=== PATIENT | female | born 1960 | race Caucasian/White ===

== ENCOUNTER → 2017-04-08 | Outpatient (CLI) | payer BC ==
[~2017-04-08] MED LIST: ASPI325T6 PO; B-12 100 MCG; CARAFATE 1GM1 G PO; CELEBREX 200MG200 MG PO; COZAAR 50MG50 MG/TAB PO; EFFEXOR XR37.5 MG/CA PO; FERROUS SU325 MG/TAB PO; FIORICET 325 MG1 TA1 PO; FOLIC ACID 40400 MCG PO; LOVENOX 4040 MG/0.4 SQ; NIACIN500 M3 PO; NORVASC 5MG5 MG/TAB PO; OMEGA 31000 MG PO; PERCOCET 325 MG1 TA2 PO; PREMARIN VAG42.5 GM VG; PRINIVIL20 MG PO; PROMETRIUM100 MG PO; PROTONIX 40MG T40 MG PO; TESTIM1% TP; VITAMIN B COMPL1 TA1 PO; VITAMIN B12100 MCG; VITAMIN C500 MG PO; VITAMIN D31000 IU PO; WELLBUTRIN SR100 M1 PO; ZOFRAN 4MG T4 MG/TAB PO; ZYRTEC 10MG10 MG PO
== END ==
LOC: MC.RAD 08:20
DX: Z12.31 Encounter for screening mammogram for malignant neoplasm of breast (principal)

== ENCOUNTER 2019-11-12 10:06 | Observation (INO) | payer BC ==
[2019-11-12] VITALS (8 sets, daily range): BP systolic 116–125; BP diastolic 50–58; PULSE 68–89; TEMP 98.1–98.5
[~2019-11-12] VITALS: Ht 170.2 cm; Wt 80.0 kg
[2019-11-12 10:49] LABS: COLLECTION METHOD CLEAN CATCH
[2019-11-12 10:57] LABS: BASO % 0.3 % (0.0-2.0); EOS # 0.1 (0.0-0.7); EOS % 0.9 % (0-4.0); GRAN # 8.8 (1.4-6.5); GRAN % 74.9 % (42.2-75.2); HEMOGLOBIN 13.6 g/dl (12.5-16.0); LYMPH # 1.5 (1.2-3.4); MEAN CELL VOLUME 92 fl (80.0-100.0); MEAN CORPUSCULAR HEMOGLOBIN 31 pg (27.0-31.0); MEAN CORPUSCULAR HGB CONC 33 g/dl (33.0-37.0); MEAN PLATELET VOLUME 9.1 fl (7.4-10.4); MONO # 1.2 (0.1-0.6); MONO % 10.5 % (1.7-9.3); PLATELET COUNT 289 K/mm3 (130-400); RED BLOOD COUNT 4.45 M/mm3 (4.10-5.30); REDCELL DISTRIBUTION WIDTH-CV 13.7 % (11.5-14.5)
[2019-11-12 10:58] LABS: PH 6 (5-8); SQUAMOUS EPITHELIAL 0-2 /hpf; URINE APPEARANCE Clear; URINE BACTERIA None Seen /hpf; URINE BILIRUBIN Negative (NEGATIVE); URINE BLOOD Negative (NEGATIVE); URINE COLOR Yellow; URINE GLUCOSE Negative (NEGATIVE); URINE KETONE Negative (NEGATIVE); URINE LEUKOCYTE ESTERASE Negative (NEGATIVE); URINE NITRATE Negative (NEGATIVE); URINE PROTEIN(semi-quant) Negative (NEGATIVE); URINE RBC 0-2 /hpf; URINE UROBILINOGEN Negative (NEGATIVE)
[2019-11-12 11:07] LABS: ALBUMIN 4.6 gm/dL (3.5-5.0); BILIRUBIN,TOTAL 0.7 mg/dL (0.0-1.0); C-REACTIVE PROTEIN 7.9 mg/dL (0.0-0.9); CALCIUM 9.7 mg/dL (8.4-10.2); CREATININE, serum 1.09 (0.52-1.25); TOTAL PROTEIN 8.2 gm/dL (6.4-8.2)
[2019-11-12] MEDS ORDERED: PRISTIQ 50 MG T50 MG PO (14:02)
[2019-11-12] MEDS ORDERED: MULTIVITAMIN FO1 CAP PO (14:02)
[2019-11-12] MEDS ORDERED: VITAMIND3 5000 PO (14:02)
[2019-11-12] MEDS ORDERED: NATURAL IRON65 MG (14:04)
--- NOTE | 2019-11-12 15:30 | NUR ---
Patient arrived to floor from ED via wheelchair. Patient is alert and oriented, answers questions appropriately. Patient reports right flank pain with movement, states that pain is tolerable when she is still. Denies current nausea or further needs at this time, call light within reach.
--- NOTE | 2019-11-12 17:49 | NUR ---
Patient left floor with periopritive staff via bed.
[2019-11-12] MEDS ORDERED: NORCO 325 MG-51 TAB PO (20:30)
[2019-11-12] MEDS ORDERED: MOTRIN 600600 MG/TAB PO (20:31)
[2019-11-12] MEDS ORDERED: AMOXICILLIN 8751 TAB PO (20:32)
--- NOTE | 2019-11-12 21:25 | NUR ---
Received report from CASH Gao . Pt came to the floor and stated that her pain was at a 11 out of 10. Pt vitals were all within normal limitis. Lungs sounds were clear and heart sounds were normal S1 and S2 sounds. Pt has fluids running and her IV is in her left AC. Pt has 3 lap sites and they are clean dry and intact no drainage. Pt now has a warm blanket on her abdomen. Pt was able to tolerate a few ice chips at this time. Pt was also informed that I would be back with something for pain. She has her call light within reach at this time.
--- NOTE | 2019-11-12 21:43 | NUR ---
Pt was given 0.5 of Dilaudid at this time. Pt stated that her pain was at a 11 out of 10 at this time. Pt was also given a pillow at this time to assist with splinting in case she had to cough or move. Pt has her call light within each and agree that she wanted to try some apple juice and jello at this time.
[2019-11-13] VITALS (7 sets, daily range): BP systolic 118–139; BP diastolic 50–67; PULSE 72–91; TEMP 98.3–99.6
--- NOTE | 2019-11-13 00:30 | NUR ---
Pt requested something for pain at this time. Pt was ablet to tolerat the jello and apple juice. She also agree to eat a few ree crackers at this time. pt was give Norc PO for pain at this time. Pt has her call light within reach.
--- NOTE | 2019-11-13 03:08 | NUR ---
Pt tried to get up to go to the restroom. Pt stated that her pain was very bad and requested something for pain at this time. Pt was given 0.5 ml of Dilaudid at this time. Pt is currently resting in bed and has he call light within reach. Pt has been encourged to cough and deep breath with her pill to splint.
--- NOTE | 2019-11-13 07:38 | NUR ---
Reported off to CASH Bermudez. Pt is currently sitting up in bed attempting to eat her breakfast. Pt was given a tooth brush and tooth paste this morning for oral care. pt was also given a towel to clean her face. Pt stated that she does not have any pain right now unless she moves. Pt did go to the restroom with the aide this morning but the void was unmeasured because she missed the hat. Pt has her call light within reach and her bed is in lowest position.
--- NOTE | 2019-11-13 16:07 | NUR ---
[employer] met with patient to discuss discharge planning. Patient lives in [place], [place] with her Darrell (ph#[phone]) and sees Dr. Weeks for primary care. Patient obtains medications from [facility] with no difficulties. Patient does not use any DME and reports independence with ADLS. Patient does not have Advance Directives but reports she would designate her Darrell if she did. Patient plans to return home upon discharge. No additional needs at this time.
[2019-11-14 00:23] VITALS: BP 134/66; PULSE 75; TEMP 98.4
--- NOTE | 2019-11-14 02:26 | NUR ---
Pt currently sleeping in bed at this time. Pt has her call light within reach
[2019-11-14 04:23] VITALS: BP 121/63; PULSE 68; TEMP 97.5
--- NOTE | 2019-11-14 07:00 | NUR ---
Report received from CASH Armendariz. PT in chair at side of bed eating breakfast, requests pain pill, will ocntinue to monitor.
[2019-11-14 07:35] VITALS: BP 111/51; PULSE 81; TEMP 98.2
--- NOTE | 2019-11-14 08:39 | NUR ---
Assessment charted. Pt has pain to abd at 6/10 but able to tolerate breakfast well, denies other needs, passing gas, 3 abd sites are closed with swiftset and healing well. Anticipating dishcarge today. Will continue to monitor.
--- NOTE | 2019-11-14 11:55 | NUR ---
Discharge teaching completed at this time. PT received discharge packet, scripts, discussed need to make F/U appointmetn when office is open. Reviewed bathing and lifting restricitons. INT dc'd, tip intact. Pt left with all belongings, wheeled out by myself, to drive home, criteria met.
== END 2019-11-14 11:55 | disposition home or self-care (01) ==
LOC: COL.ER 10:06 → SURG 14:04
PROVIDERS: Nurse Practitioner; ADMIT Surgery
DX: K35.80 Unspecified acute appendicitis (principal); Z90.710 Acquired absence of both cervix and uterus; Z88.0 Allergy status to penicillin; Z88.2 Allergy status to sulfonamides; Z88.1 Allergy status to other antibiotic agents; Z88.8 Allergy status to other drugs, medicaments and biological substances
CPT/HCPCS: A9284; G0378; J1170; J2270; J2405; J2543; J2704; J3010; J7030; J7120; Q9967

== ENCOUNTER → 2020-05-05 | Outpatient (CLI) | payer BC ==
[~2020-05-05] MED LIST changes: +AMOXICILLIN 8751 TAB PO; +MOTRIN 600600 MG/TAB PO; +MULTIVITAMIN FO1 CAP PO; +NATURAL IRON65 MG; +NORCO 325 MG-51 TAB PO; +PRISTIQ 50 MG T50 MG PO; +VITAMIND3 5000 PO
== END ==
LOC: MC.RAD 03-24 11:15
DX: Z12.31 Encounter for screening mammogram for malignant neoplasm of breast (principal)

== ENCOUNTER → 2021-12-28 | Outpatient (CLI) | payer BC | LOC: MC.RAD 09:14 | DX: Z12.31 Encounter for screening mammogram for malignant neoplasm of breast (principal) ==